=== PATIENT | female | born 1970 ===

== ENCOUNTER → 2020-12-03 | Emergency (ER) | payer OTHER ==
[~2020-12-03] VITALS: Ht 162.6 cm; Wt 47.6 kg
[~2020-12-03] MED LIST: LEVOTHYROXINE50 MC1
== END | disposition left against medical advice (07) ==
LOC: ER 03:29
DX: N93.8 Other specified abnormal uterine and vaginal bleeding (principal)

== ENCOUNTER 2023-03-10 14:32 | Outpatient (CLI) | payer OTHER | END 2023-03-10 14:34 | disposition home or self-care (01) | LOC: SONOGRAMA 14:32 | PROVIDERS: ATTEND Family Medicine | DX: R22.42 Localized swelling, mass and lump, left lower limb (principal) ==